=== PATIENT | female | born 1970 | race Caucasian/White ===

== ENCOUNTER → 2017-12-10 | Day surgery (SDC) | payer SELFPAY ==
[~2017-12-10] VITALS: Ht 165.1 cm; Wt 54.4 kg
--- NOTE | 2017-12-10 13:23 | Operative Report ---
Operative/Inv Procedure Report Surgery Date: 12/10/17 Name of Procedure: Tip rhinoplasty septoplasty Pre-Operative Diagnosis: Dissatisfaction with nasal appearancecosmetic Post-Operative Diagnosis: Same Estimated Blood Loss: scant Surgeon/Hr Clerk: Elvis Moran MD Anesthesia: general endotracheal tube Operative/Procedure Note Note: Patient was counseled extensively in regards to the procedure the alternatives the risks and expected outcomes as relates to her request for surgical intervention to treat dissatisfaction with the nose primarily the nasal tip and its associated problems with rotation and projection. Patient has no airway difficulties. Discussed the a SPS informed consent discussed soft tissue loss open wounds numbness pain bleeding infection synechia nasal skin and structure collapse. Additional items were discussed and accepted. She signed informed consent. She was taken to the operating room placed supine on the table. Venodyne boots were placed and then general anesthesia was established intravenous antibiotics given. The face was prepared by injection of 1% lidocaine with epinephrine. Afrin soaked pledgets were placed in the airway and in moistened nasal pack was placed in the pharynx. Stairstep incision was made across the columella and extended into an infra cartilaginous incision bilaterally. The skin was elevated. Lower lateral cartilages were trimmed in the cephalic position leaving approximately 6-7 mm. Interdomal intradomal and tip defining sutures were also used to provide appropriate projection and rotation. A few millimeters were was excised off of the caudal septum. Caudal portion of the upper laterals which were rolled were also trimmed symmetrically. Wounds irrigated and closed. Bacitracin and Surgicel were placed in the anterior nasal region behind the soft triangle bilaterally. Steri-Strips were placed on the skin with a drip pad.
== END ==
LOC: STS 01:34
DX: Z41.1 Encounter for cosmetic surgery (principal); M95.0 Acquired deformity of nose; F17.200 Nicotine dependence, unspecified, uncomplicated
CPT/HCPCS: 81025; J0131; J0690; J2250; J3490